=== PATIENT | male | born 1980 ===

== ENCOUNTER 2017-01-03 09:17 | Day surgery (SDC) | payer OTHER ==
[~2017-01-03 09:17] MED LIST: Buffered Lidocaine 0.9% SYRIN* 5 ML/SYR SYRINGE INTRADERM ONE
[2017-01-03] MEDS ORDERED: Buffered Lidocaine 0.9% SYRIN* 5 ML/SYR SYRINGE ONE (09:23)
[2017-01-03] MEDS ORDERED: Oxymetazoline 0.05% NASAL SPR* 15 ML BTL ONE (10:41)
[2017-01-03] MEDS ORDERED: Lidocaine 1% MPF wEPI 200,000* 30 ML SDV ONE (10:41)
[2017-01-03] MEDS ORDERED: fentaNYL* 50 MCG/ML 2 ML VIAL (100 MCG VIAL) ONE (10:42)
[2017-01-03] MEDS ORDERED: Propofol* 10 MG/ML 20 ML BTL IV PUSH ONE (10:43)
[2017-01-03] MEDS ORDERED: Lidocaine 2% PF * 5 ML VIAL ONE (10:43)
[2017-01-03] MEDS ORDERED: DiMENhydriNATE IV* 50 MG/ML VIAL IV PUSH PRN (11:00)
[2017-01-03] MEDS ORDERED: fentaNYL* 50 MCG/ML 2 ML VIAL (100 MCG VIAL) IV PRN (11:00)
[2017-01-03] MEDS ORDERED: Ondansetron INJ* 2 MG/ML VIAL IV PRN (11:00)
[2017-01-03] MEDS ORDERED: Ketorolac INJ* 30 MG/ML 1 ML VIAL IV PRN (11:00)
[2017-01-03] MEDS ORDERED: Ketorolac INJ* 30 MG/ML 1 ML VIAL ONE (11:30)
[2017-01-03] MEDS ORDERED: HYDROcodone/ACET. 7.5/325 LIQ* 15 ML UDC ONE (11:50)
[2017-01-03 12:19] VITALS: BP 153/111
--- NOTE | 2017-01-03 14:01 | OP ---
DATE OF OPERATION: 01/03/17 - [facility] DATE OF : 82 SURGEON: Sid Kline M.D. ANESTHESIOLOGIST: Taye Perales MD ANESTHESIA: General PRE-OP DIAGNOSES: Nasal dyspnea, deviated nasal septum, hypertrophy of the inferior turbinates. POST-OP DIAGNOSES: Nasal dyspnea, deviated nasal septum, hypertrophy of the inferior turbinates. OPERATIVE PROCEDURE: Septoplasty and submucosal resection of the inferior turbinates. BRIEF HISTORY: This 36-year-old with chronic nasal dyspnea with a markedly deviated nasal septum, not improving with any nasal sprays, elected for surgical therapy. DESCRIPTION OF PROCEDURE: The patient was taken to the operating room, general anesthetic given, patient intubated with LMA. Nose was decongested with Afrin placed pledgets. A 2% lidocaine with epinephrine was infiltrated in the mucosa of the septum on both sides in the inferior turbinates. A right hemitransfixion incision was created, mucoperichondrial flap was elevated. Quadrangular cartilage was disarticulated along the vomer-ethmoidal complex posteriorly and along the maxillary crest inferiorly. Quadrangular cartilage was then scored on its concave surface portions of the ethmoidal bone which had a large spur, was removed. A small portion of the crest was removed to accommodate the cartilage. Once the cartilage was in place, that was mattress sutured with chromic. The hemitransfixion incision was closed. Next, some Giuseppe splints were applied to secure the septum in place. This was secured with 2-0 silk. Next, we turned our attention to the inferior turbinates. Submucosal elevation was carried out. After a small incision, a submucosal resection was carried out with the small portion of the bone, then cauterization of the soft tissue was carried out to enhance hemostasis. A small piece of nasal packing was carried out with the nasal dressing. The patient was the awakened and sent to recovery room in stable condition. Instrument and sponge count correct. Blood loss minimal. [id number] #: [id number] MTDD
== END 2017-01-03 12:35 | disposition home or self-care (01) ==
LOC: OR 09:17
PROVIDERS: ATTEND Otolaryngology
DX: J34.2 Deviated nasal septum (principal); J34.3 Hypertrophy of nasal turbinates; R06.09 Other forms of dyspnea; G47.33 Obstructive sleep apnea (adult) (pediatric); F17.210 Nicotine dependence, cigarettes, uncomplicated; J35.1 Hypertrophy of tonsils
CPT/HCPCS: 36415; 86703; A9270-GY; J1885; J2001; J2704; J3010